=== PATIENT | male | born 1960 | race Caucasian/White ===

== ENCOUNTER → 2017-03-26 | Outpatient (CLI) | payer MEDICARE ==
[~2017-03-26] MED LIST: LORTAB 5/500 TA1 TA1 PO
--- NOTE | ~2017-03-26 | US136 ---
[facility] A Service of [facility] RADIOLOGY TEXT RESULTS PATIENT: RUI RUSSELL LOCATION: CNIV : 56 UNIT #: [id number] AGE: [address]: Dario Avila MD SEX: M ORDER DR: [id number] [facility] [address] [place], [place] [address] [id number] O MR#: [id number] Acc #: [id number] NAME: RUI RUSSELL : 1960 SEX: M STUDY DATE/TIME: 03/26/2017 11:40 UNIT: CNIV ROOM: STUDY DESCRIPTION: U/L Ext Art Study [facility] Bil Attending Physician: Jennifer Avila M.D. Referring Physician: Jennifer Avila M.D. Ordering Physician: Jennifer Avila M.D. Primary Care Physician: Davin Sin M.D. MEDICAL IMAGING REPORT This report is preliminary unless electronic signature is present EXAM Ankle-brachial indices, 03/26/2017. HISTORY Claudication. FINDINGS The right brachial pressure is 127, and the left brachial pressure is 120. The right dorsalis pedis pressure is 86, posterior tibial 94, and toe 51, for an ankle-brachial index of 0.74. The left dorsalis pedis pressure is 100, posterior tibial 106, and toe 28, for an ankle-brachial index of 0.83. Doppler wave form analysis indicates a biphasic signal in the posterior tibial arteries bilaterally. There is a monophasic signal in the dorsalis pedis arteries bilaterally. Pulse volume recording tracings demonstrate damping of the amplitude of the signal at the right ankle, compared to the left. IMPRESSION Moderate ischemia of the right leg, with an ankle-brachial index of 0.74. Mild ischemia of the left leg with an ankle-brachial index of 0.83. Dictated by... Hair Mallory M.D. THIS IS AN ELECTRONICALLY VERIFIED REPORT Hair Mallory M.D. at 03/27/2017 7:29 AM [facility] A Service of [facility] RADIOLOGY TEXT RESULTS PATIENT: RUI RUSSELL LOCATION: CNIV : 56 UNIT #: [id number] AGE: [address]: Dario Avila MD SEX: M ORDER DR: Ananth TD: 03/26/2017 14:24 JOB #: [id number] MEDICAL IMAGING REPORT Page 1 of 1 COPY
== END | disposition home or self-care (01) ==
LOC: CNIV 11:06
DX: I73.9 Peripheral vascular disease, unspecified (principal); I77.89 Other specified disorders of arteries and arterioles
CPT/HCPCS: 93922